=== PATIENT | male | born 1990 | race Hispanic/Latino ===

== ENCOUNTER 2017-04-16 09:53 | Observation (INO) | payer OTHER ==
[2017-04-16] MEDS ORDERED: Iohexol 240 (50 ml) PO STA (10:21)
[2017-04-16] MEDS ORDERED: Sodium Chloride 0.9% 1,000 ML IV ONE (10:21)
[2017-04-16] MEDS ORDERED: Iohexol 240 (50 ml) ONE (10:30)
[2017-04-16] MEDS ORDERED: Sodium Chloride 0.9% 1,000 ML ONE (10:30)
[2017-04-16] MEDS ORDERED: Morphine 4 MG/ML VIAL ONE (10:30)
--- NOTE | 2017-04-16 10:33 | C.PDOC ---
History Of Present Illness 26 year old male presents to the ED with complaints of worsening LUQ pain for three days exacerbated by movement or breathing. Patient states pain is constant and localized with associated fever and chills "but might be because of the pain." He denies nausea, vomiting, diarrhea, prior abdominal surgery, recent long travel, leg pain or swelling, or any trauma. WORSENING LUQ PAIN X 3 DAYS. CONSTANT LOCALIZED. SUBJ FEVER, CHILLS "BUT MIGHT BC OF THE PAIN". NO NVD. NO PRIOR ABD SURG. WORSE W BREATHING, MOVEMENT. DENIES RECENT LONG TRAVEL HX, LEG PAIN OR SWELL. NO TRAUMA EXAM MOD DIST NONTOXIC LUNGS CTA B/L NO W/R/R +REPRODUC PAIN PLEURITIC ABD GUARDING, +LUQ TEND SEVERE. NONDISTENDING EXT NEG SKIN WARM DRY REMAINDER NEG Time Seen by Provider: 04/16/17 10:09 Chief Complaint (Nursing): Abdominal Pain History Per: Patient History/Exam Limitations: no limitations Onset/Duration Of Symptoms: Days (worsening pain for three days) Current Symptoms Are (Timing): Still Present Location Of Pain/Discomfort: LUQ Radiation Of Pain To:: None Quality Of Discomfort: "Pain" Associated Symptoms: Fever, Chills. denies: Nausea, Vomiting, Diarrhea Exacerbating Factors: Movement, Deep Breaths Recent travel outside of the [place]: No Past Medical History Reviewed: Historical Data, Nursing Documentation, Vital Signs Vital Signs: Last Vital Signs Temp 98.4 F 04/16/17 13:50 Pulse 79 04/16/17 13:50 Resp 18 04/16/17 13:50 BP 107/66 04/16/17 13:50 Pulse Ox 100 04/16/17 15:05 Family History: States: Unknown Family Hx - Social History Hx Alcohol Use: Yes Hx Substance Use: No - Immunization History Hx Tetanus Toxoid Vaccination: No Hx Influenza Vaccination: No Hx Pneumococcal Vaccination: No Review Of Systems Constitutional: Positive for: Fever (subjective fever ), Chills Cardiovascular: Negative for: Chest Pain Respiratory: Negative for: Shortness of Breath Gastrointestinal: Positive for: Abdominal Pain (LUQ pain). Negative for: Nausea , Vomiting, Diarrhea Musculoskeletal: Negative for: Leg Pain (no leg swelling or leg pain) Physical Exam - Physical Exam Appears: Non-toxic, In Acute Distress (patient appears to be in moderate distress) Skin: Warm, Dry Neck: Supple Chest: Symmetrical, No Deformity Cardiovascular: Rhythm Regular Respiratory: Normal Breath Sounds (clear to auscultation bilaterally), No Rales , No Rhonchi, No Wheezing, Other (reproducable pleuritic pain) Gastrointestinal/Abdominal: Tenderness (severe LUQ tenderness), No Distention, Guarding Extremity: Normal ROM, No Tenderness, Capillary Refill (good capillary refill, less than 2 seconds ), No Deformity, No Swelling Neurological/Psych: Oriented x3 ED Course And Treatment - Laboratory Results Result Diagrams: 04/16/17 15:15 04/16/17 10:48 ECG: Interpreted By Me ECG Rhythm: Sinus Rhythm ECG Interpretation: Normal Rate From EC O2 Sat by Pulse Oximetry: 100 (room air ) - Radiology CXR: Interpreted by Me CXR Interpretation: Yes: No Acute Disease Progress - Data Reviewed Data Reviewed: Lab, Diagnostic imaging, EKG, Old records - Critical Care Citical Care: Excluding Proc Time Critical Care Time: 120 minutes ED OBSERVATION Discharge: Yes Date of observation admission: 04/16/17 Time of observation admission: 10:30 - Observation admission statement Patient is being placed in observation because:: ABD PAIN - Goals of Observation Goals of observation are:: SX IMPROVE, NEG ACUTE ABD - Progress Note Progress Note: 04/16/17 10:59 PT REFUSING PAIN MEDS @ THIS TIME. APPEARS MORE COMFORTABLE COMPARED TO PRIOR. 04/16/17 15:05 CO PERSIST PAIN. VSS. NO APPARENT DISTRESS. CT NEG. WILL REPEAT CBC, CARAFATE, REASSESS 04/16/17 15:43 WBC IMPROVED COMPARED TO PRIOR. ADVISED FU PMD/GI FOR FURTHER EVAL Disposition Counseled Patient/Family Regarding: Studies Performed, Diagnosis, Need For Followup, Rx Given - Disposition Disposition: HOME/ ROUTINE Disposition Time: 15:43 Condition: IMPROVED - Clinical Impression Clinical Impression: Abdominal pain - Scribe Statement The provider has reviewed the documentation as recorded by the Scribe Tawanna Martinez All medical record entries made by the Navinibe were at my direction and personally dictated by me. I have reviewed the chart and agree that the record accurately reflects my personal performance of the history, physical exam, medical decision making, and the department course for this patient. I have also personally directed, reviewed, and agree with the discharge instructions and disposition.
--- NOTE | 2017-04-16 10:38 | RAD ---
HISTORY: L LOWER CHEST PAIN COMPARISON: No prior. TECHNIQUE: Chest PA and lateral FINDINGS: LUNGS: No active pulmonary disease. PLEURA: No significant pleural effusion identified. No pneumothorax apparent. CARDIOVASCULAR: Normal. OSSEOUS STRUCTURES: No significant abnormalities. VISUALIZED UPPER ABDOMEN: Normal. OTHER FINDINGS: None. IMPRESSION: No active disease.
[2017-04-16 10:52] LABS: BASO % 0.3 % (0.0-2.0); EOS % 0.3 % (0.0-4.0); HEMOGLOBIN 16.4 g/dL (12.0-18.0); LYMPH # 1.6 K/uL (1.0-4.3); LYMPH % 10.4 % (20.0-40.0); MEAN CELL VOLUME 82.5 fL (80.0-94.0); MEAN CORPUSCULAR HEMOGLOBIN 27.2 pg (27.0-31.0); MEAN PLATELET VOLUME 9.1 fL (7.2-11.7); MONO # 1.3 K/uL (0.0-0.8); MONO % 8.1 % (0.0-10.0); NEUT # 12.6 K/uL (1.8-7.0); NEUT % 80.9 % (50.0-75.0); RBC 6.05 Mil/uL (4.40-5.90); RED CELL DISTRIBUTION WIDTH 12.8 % (11.5-14.5); WHITE BLOOD COUNT 15.6 K/uL (4.8-10.8)
[2017-04-16 10:57] LABS: VENOUS BLOOD GAS BASE EXCESS 3.1 mmol/L (0.0-2.0); VENOUS BLOOD GAS PCO2 38 mmHg (40-60); VENOUS BLOOD GAS PO2 22 mm/Hg (30-55); VENOUS BLOOD PH 7.46 (7.32-7.43)
[2017-04-16 10:58] LABS: SQUAMOUS EPITHIAL < 1 /hpf (0-5); URINE BILIRUBIN NEGATIVE (NEGATIVE); URINE BLOOD NEGATIVE (NEGATIVE); URINE CLARITY Clear (Clear); URINE COLOR Yellow (YELLOW); URINE GLUCOSE (UA) NORMAL (Normal); URINE LEUKOCYTE ESTERASE NEG Leu/uL (Negative); URINE NITRATE NEGATIVE (NEGATIVE); URINE PROTEIN NEGATIVE (NEGATIVE); URINE UROBILINOGEN NORMAL mg/dL (0.2-1.0)
[2017-04-16 11:05] LABS: ALBUMIN 4.8 g/dL (3.5-5.0)
[2017-04-16 11:08] LABS: ALB/GLOB RATIO 1.3 (1.0-2.1); ALT/SGPT 35 U/L (21-72); AST/SGOT 28 U/L (17-59); BLOOD UREA NITROGEN 15 mg/dL (9-20); GFR AFRICAN-AMERICAN > 60; GFR NON-AFRICAN AMERICAN > 60; LIPASE 62 U/L (23-300)
[2017-04-16 11:09] LABS: CALCIUM 9.7 mg/dl (8.6-10.4)
[2017-04-16 13:51] VITALS: RESP 18; TEMP 98.4
[2017-04-16] MEDS ORDERED: Iodixanol 320 MG/ML 100 ML BOTTLE IV ONE (14:25)
--- NOTE | 2017-04-16 15:01 | CT ---
PROCEDURE: CT Abdomen and Pelvis with contrast HISTORY: LUQ PAIN COMPARISON: None. TECHNIQUE: Contrast dose: 100 cc Omnipaque Radiation dose: Total exam DLP = 228 mGy-cm. This CT exam was performed using one or more of the following dose reduction techniques: Automated exposure control, adjustment of the mA and/or kV according to patient size, and/or use of iterative reconstruction technique. FINDINGS: LOWER THORAX: Unremarkable. LIVER: Unremarkable. No gross lesion or ductal dilatation. GALLBLADDER AND BILE DUCTS: Unremarkable. PANCREAS: Unremarkable. No gross lesion or ductal dilatation. SPLEEN: Unremarkable. ADRENALS: Unremarkable. No mass. KIDNEYS AND URETERS: Unremarkable. No hydronephrosis. No solid mass. VASCULATURE: Unremarkable. No aortic aneurysm. BOWEL: Unremarkable. No obstruction. No gross mural thickening. APPENDIX: Normal appendix. PERITONEUM: Unremarkable. No free fluid. No free air. LYMPH NODES: Unremarkable. No enlarged lymph nodes. BLADDER: Unremarkable. REPRODUCTIVE: Unremarkable. BONES: No acute fracture. OTHER FINDINGS: None. IMPRESSION: Unremarkable contrast enhanced CT of the abdomen and pelvis.
[2017-04-16 15:18] LABS: BASO % 0.3 % (0.0-2.0); EOS % 0.1 % (0.0-4.0); LYMPH # 1.2 K/uL (1.0-4.3); LYMPH % 9.1 % (20.0-40.0); MEAN CELL VOLUME 83.5 fL (80.0-94.0); MEAN CORPUSCULAR HEMOGLOBIN 27.7 pg (27.0-31.0); MEAN CORPUSCULAR HGB CONC 33.1 g/dL (33.0-37.0); MEAN PLATELET VOLUME 8.9 fL (7.2-11.7); MONO # 0.9 K/uL (0.0-0.8); MONO % 6.7 % (0.0-10.0); NEUT # 11.3 K/uL (1.8-7.0); NEUT % 83.8 % (50.0-75.0); PLATELET COUNT 237 K/uL (130-400); RBC 5.08 Mil/uL (4.40-5.90); RED CELL DISTRIBUTION WIDTH 12.9 % (11.5-14.5); WHITE BLOOD COUNT 13.5 K/uL (4.8-10.8)
[2017-04-16 15:35] LABS: BANDS 1 % (0-2); LYMPHOCYTE 10 % (20-40); MONOCYTE 5 % (0-10); NEUTROPHIL 84 % (50-75); PLATELET ESTIMATE NORMAL (NORMAL); TOTAL CELLS COUNTED 100
[2017-04-16 16:06] VITALS: BP 111/72; PULSE 70; O2SAT 97
--- NOTE | 2017-04-16 16:07 | CARD ---
APPROVED REPORT EKG Measurement Heart [id number] <Conclusion> Normal sinus rhythm with sinus arrhythmia Rightward axis Borderline ECG
== END 2017-04-16 15:43 | disposition home or self-care (01) ==
LOC: C.ER 09:53 → C.9OBSV 10:30
PROVIDERS: ADMIT Emergency Medicine; ATTEND Emergency Medicine
DX: R10.11 Right upper quadrant pain (principal); R50.9 Fever, unspecified
CPT/HCPCS: 71020; 74177; 80053; 81001; 82803; 83690; 84484; 85025; 85378; 87040; 87086; 93005; 96374; 99285; G0378; J7040; Q9966; Q9967